=== PATIENT | male | born 2000 | race Caucasian/White ===

== ENCOUNTER 2020-06-21 11:12 | Emergency (ER) | payer OTHER ==
[2020-06-21] MEDS ORDERED: DEXAMETHASONE 10 MG/ML VIAL PO STA (12:01)
[2020-06-21] MEDS ORDERED: CHERRY SYRUP 10 ML UDC PO ONE (12:01)
--- NOTE | 2020-06-21 12:04 | ED Physician Documentation ---
PD HPI HEENT - Stated complaint Stated Complaint: RT EAR PX - Chief complaint Chief Complaint: Heent - History obtained from History obtained from: Patient - History of Present Illness Timing - onset: How many days ago (2) Timing - duration: Days (2) Timing - details: Gradual onset, Still present Location: Right ear Improves: Medication Worsens: Swalllowing, Position Associated symptoms: Congestion. No: Fever, Rhinorrhea, Swollen nodes, Facial swelling, Headache, Cough Similar symptoms before: Has not had sx before Recently seen: Not recently seen - Additional information Additional information: Previously well 19-year-old male who works in [employer] for the [employer] usually wears earplugs and he has been having some pain in his right ear especially if he puts earplugs in and he is now had a marked increase in this pain and has muffled hearing as well he denies a cough or fever. Review of Systems Constitutional: denies: Fever Eyes: denies: Decreased vision Ears: reports: Loss of hearing, Ear pain Nose: reports: Congestion. denies: Rhinorrhea / runny nose Throat: denies: Sore throat Cardiac: denies: Chest pain / pressure, Palpitations Respiratory: denies: Dyspnea, Cough GI: denies: Vomiting PD PAST MEDICAL HISTORY - Past Medical History Past Medical History: No Cardiovascular: None Respiratory: None Neuro: None Endocrine/Autoimmune: None GI: None : None HEENT: None Psych: None Musculoskeletal: None Derm: None - Past Surgical History Past Surgical History: No - Present Medications Home Medications: Ambulatory Orders Medication Instructions Recorded Confirmed Azithromycin [Zithromax] 250 mg PO DAILY #6 tablet 06/21/20 Neomycin/Polymyx/Hc Otic Drops 4 drops RIGHTEAR TID #1 bottle 06/21/20 [Cortisporin Ear Susp] - Allergies Allergies/Adverse Reactions: Allergies Allergy/AdvReac Type Severity Reaction Status Date / Time No Known Drug Allergies Allergy Verified 06/21/20 11:14 - Social History Does the pt smoke?: No Smoking Status: Never smoker Does the pt drink ETOH?: Yes Does the pt have substance abuse?: No - Immunizations Immunizations are current?: Yes - POLST Patient has POLST: No PD ED PE NORMAL - Vitals Vital signs reviewed: Yes (wide pulse pressure) - General General: Alert and oriented X 3, No acute distress, Well developed/nourished - HEENT HEENT: Atraumatic, PERRL, EOMI, Other (TM's obsucured by cerumen bilaterally after removeal the right is inflammed in the canal and on the TM with distortion of the landmarks. The left is inflamed without inflamation of the canal. pharynx with 2+ cryptic tonsils. 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, No motor deficit, No sensory deficit, Normal speech Eye Opening: Spontaneous Motor: Obeys Commands Verbal: Oriented GCS Score: 15 - Psych Psych: Normal mood, Normal affect Results - Vitals Vitals: Vital Signs - 24 hr 06/21/20 11:15 Temperature 36.6 C Heart Rate 62 Respiratory 16 Rate Blood Pressure 124/50 L O2 Saturation 100 Oxygen O2 Source Room air Procedures - General procedure General procedure: Removal of cerumen impaction: With the use of an oil fleets enema both ears are instilled and after approximately 10 minutes warm saline is utilized to flush the canals out with success bilaterally. PD MEDICAL DECISION MAKING - ED course Complexity details: reviewed results, re-evaluated patient, considered differential, d/w patient ED course: 19-year-old male with cerumen impaction bilaterally has otitis media on exam bilaterally and otitis externa on the right. He is treated here in the [facility] department with 10 mg of dexamethasone we will place him both on Cortisporin otic and azithromycin. Departure - Departure Disposition: 01 Home, Self Care Clinical Impression: Otitis externa Qualifiers: Otitis externa type: unspecified type Chronicity: acute Laterality: right Qualified Code(s): H60.501 - Unspecified acute noninfective otitis externa, right ear Otitis media Qualifiers: Otitis media type: suppurative Chronicity: acute Laterality: bilateral Recurrence: not specified as recurrent Spontaneous tympanic membrane rupture: without spontaneous rupture Qualified Code(s): H66.003 - Acute suppurative otitis media without spontaneous rupture of ear drum, bilateral Condition: Stable Instructions: ED Otitis Media Acute Adult, ED Otitis Externa Follow-Up: [facility] [Provider Group] Prescriptions: Neomycin/Polymyx/Hc Otic Drops [Cortisporin Ear Susp] 4 drops RIGHTEAR TID #1 bottle Azithromycin [Zithromax] 250 mg PO DAILY #6 tablet
[2020-06-21 12:20] VITALS: BP 109/60
== END 2020-06-21 12:21 | disposition home or self-care (01) ==
LOC: ED 11:12
DX: H66.003 Acute suppurative otitis media without spontaneous rupture of ear drum, bilateral (principal); H60.501 Unspecified acute noninfective otitis externa, right ear; H61.23 Impacted cerumen, bilateral
CPT/HCPCS: 69209; 99282; 99284; A9270